=== PATIENT | male | born 1995 | race Caucasian/White ===

== ENCOUNTER 2017-06-15 14:54 | Emergency (ER) | payer SELFPAY ==
[~2017-06-15] VITALS: Ht 185.4 cm; Wt 81.8 kg
[~2017-06-15 14:54] MED LIST: DOXYCYCLINE 10100 MG PO; FOLIC ACID 11 MG/TA1 PO; NO HOME MEDICATIONS; NORCO 325 MG-51 TAB PO; THERAGRAN TAB1 UDTAB PO; THIAMINE 1100 MG/TAB PO; [UNRECOGNIZED DRUG - REMARK]
[2017-06-15 14:56] VITALS: BP 124/60; TEMP 97.8
[2017-06-15] MEDS ORDERED: BACTRIM DS 8001 TAB PO (15:17)
[2017-06-15 15:58] VITALS: PULSE 77
== END 2017-06-15 16:07 | disposition home or self-care (01) ==
LOC: COL.ER 14:54
DX: L02.11 Cutaneous abscess of neck (principal); Z23 Encounter for immunization